=== PATIENT | female | born 1995 | race Caucasian/White ===

== ENCOUNTER 2023-11-30 20:28 | Emergency (ER) | payer MEDICARE, MEDICAID ==
[~2023-11-30 20:28] MED LIST: Iopamidol 300 61% 100 ML VIAL FS ONE
[2023-11-30 23:36] LABS: #Basophils 0.01 10x3/uL (0.0-0.2); #Eosinphils 0.01 10x3/uL (0.0-0.5); #Monocytes 0.49 10x3/uL (0.0-1.1); #Neutrophils 7.19 10x3/uL (1.5-8.4); %Basophils 0.1 % (0.0-2.0); %Eosinophils 0.1 % (0.0-6.0); %Lymphocytes 9.1 % (18.0-47.0); %Monocytes 5.8 % (0.0-10.0); %Neutrophils 84.8 % (40.0-75.0); Hematocrit 28.8 % (34.9-44.5); Hemoglobin 9.3 g/dL (12.0-15.5); Mean Corpuscular HGB CONC 32.3 g/dL (32.0-36.0); Mean Corpuscular Hemoglobin 35.1 pg (27.0-33.0); Mean Corpuscular Volume 108.7 fL (81.6-98.3); Mean Platelet Volume 11.2 fL (7.4-10.4); Platelet Count 124 10x3/uL (150-450); RBC Distribution Width 16.6 % (11.5-14.5); Red Blood Cell (RBC) Count 2.65 10x6/uL (3.90-5.03); White Blood Cell (WBC) Count 8.5 10x3/uL (3.5-10.5)
[2023-11-30 23:50] LABS: ALT (SGPT) 42 U/L (8-55); AST (SGOT) 48 U/L (5-34); Albumin 3.2 g/dL (3.5-5.0); Alkaline Phosphatase 180 U/L (40-110); Anion Gap 14 mmol/L (10-20); BUN (Urea Nitrogen) 30 mg/dL (7.0-18.7); Bilirubin, Total 1.1 mg/dL (0.2-1.2); Calc. Creatinine Clearance 0 mL/min (70-130); Carbon Dioxide 21 mmol/L (22-29); Chloride 107 mmol/L (98-107); Estimated GFR 104; Glucose 84 mg/dL (70-105); Lipase 192 U/L (8-78); Potassium 4.1 mmol/L (3.5-5.1); Protein, Total 8.2 g/dL (6.0-8.3); Sodium 138 mmol/L (136-145)
[2023-11-30 23:55] LABS: Bilirubin Neg (Negative); Blood, Urine 250 (Negative); Clarity Cloudy (Clear); Glucose, Urine (Dipstick) Normal (Negative); Ketone, Urine Negative (Negative); Leukocyte Negative (Negative); Nitrite Positive (Negative); Protein, Urine (Dipstick) 15 mg/dl (Neg-Trace); Urobilinogen Normal mg/dL (Less than 2)
[2023-12-01 00:04] LABS: Bacteria/HPF 2+ HPF (None Seen); CAUTI Indications for Culture Dysuria,urgency,freq; Squamous Epithelial 0-3 HPF (0-3); WBC/HPF 0-3 HPF (0-3)
[2023-12-01 00:07] LABS: Urine Culture Reflex No No
[2023-12-01] MEDS ORDERED: Amoxicillin/Potassium Clav 250 mg/5 ml Oral Suspension PO SCH (01:30)
== END 2023-12-01 01:55 | disposition home or self-care (01) ==
LOC: CSHERS 20:28
DX: J15.9 Unspecified bacterial pneumonia (principal); N39.0 Urinary tract infection, site not specified; E03.9 Hypothyroidism, unspecified; G40.909 Epilepsy, unspecified, not intractable, without status epilepticus; G80.9 Cerebral palsy, unspecified; Z79.899 Other long term (current) drug therapy
CPT/HCPCS: 71045; 74177; 80053; 81001; 83605; 83690; 85025; Q9967

== ENCOUNTER 2024-02-13 10:39 | Outpatient (CLI) | payer MEDICARE, MEDICAID | END 2024-02-13 10:40 | disposition home or self-care (01) | LOC: CSHRAD 10:39 | PROVIDERS: ATTEND Psychiatry & Neurology Neurology | DX: J18.9 Pneumonia, unspecified organism (principal) | CPT/HCPCS: 36415; 71046; 80053; 80175; 80177; 80201; 85025 ==

== ENCOUNTER 2024-11-30 10:07 | Outpatient (CLI) | payer MEDICARE, MEDICAID | END 2024-11-30 10:08 | disposition home or self-care (01) | LOC: CSHRAD 10:07 | PROVIDERS: ATTEND Student in an Organized Health Care Education/Training Program | DX: Z93.1 Gastrostomy status (principal) | CPT/HCPCS: 74018 ==